=== PATIENT | male | born 2005 | race Two or more races ===

== ENCOUNTER 2024-07-09 02:23 | Emergency (ER) | payer MEDICAID, SELFPAY ==
[2024-07-09 02:24] VITALS: BMI 22.1
[2024-07-09 02:29] VITALS: BP 111/71; PULSE 64; RESP 19; TEMP 36.4; O2SAT 100
--- NOTE | 2024-07-09 03:15 | PD.EDABDPN ---
ED Abdominal Pain RME/HPI General Chief Complaint: Abdominal Pain Stated complaint: ABD PAIN Time seen by provider: 07/09/24 03:08 Arrival date/time: 07/09/24 02:23 19M with no significant PMH presents to ED with 1 hour of epigastric/LUQ pain. Patient denies N/V and URI symptoms. Limitations: no limitations Related Data Previous Rx's ?Medication ?Instructions ?Recorded ibuprofen 600 mg tablet 600 mg PO Q6H #30 tabs 03/26/23 Allergies Allergy/AdvReac Type Severity Reaction Status Date / Time No Known Drug Allergies Allergy Verified 03/26/23 15:51 Review of Systems Review of Systems Systems Reviewed: All systems reviewed, normal except as documented Constitutional Constitutional: Reports system reviewed and no additional complaints, except as documented, Denies fever(s) and Denies headache(s) ENT Ears, Nose, Mouth, and Throat: Denies disequilibrium and Denies headache(s) Cardiovascular Cardiovascular: Reports system reviewed and no additional complaints, except as documented, Denies chest pain and Denies dyspnea Respiratory Respiratory: Reports system reviewed and no additional complaints, except as documented, Denies cough and Denies dyspnea Gastrointestinal Gastrointestinal: Reports system reviewed and no additional complaints, except as documented, Reports as per HPI, Reports abdominal pain, Denies nausea and Denies vomiting Neurologic Neurologic: Reports system reviewed and no additional complaints, except as documented, Denies confusion, Denies disequilibrium and Denies headache(s) Psychiatric Psychiatric: Denies confusion Past Medical History Social History SMOKING STATUS: Never smoker ED Exam General Limitations: Present no limitations General appearance: Present alert and in no apparent distress Head Head exam: Present atraumatic Eye Eye exam: Present normal appearance, PERRL and EOMI ENT ENT exam: Present normal exam, normal oropharynx and mucous membranes moist Neck Neck exam: Present normal inspection, full ROM and trachea midline Chest Chest inspection: Present normal inspection and symmetric chest wall rise Respiratory Respiratory exam: Present normal lung sounds bilaterally Cardiovascular Cardiovascular exam: Present regular rate, normal rhythm and normal heart sounds Abdominal Exam Abdominal exam: Present soft and normal bowel sounds Abdominal tenderness: Present epigastrium and mild Extremities Exam Extremities exam: Present normal inspection and full ROM Back Exam Back exam: Present normal inspection and full ROM Neurological Exam Neurological exam: Present alert, oriented X3 and CN II-XII intact Psychiatric Psychiatric exam: Present normal affect and normal mood Skin Skin exam: Present warm, dry, intact and normal color Course Quality Measures none Orders Category Date Time Status Famotidine [Pepcid] Med 07/09/24 03:11 Discontinued 40 mg PO X1 ONE mg Hyd/Al Hyd/Jaqueline Susp [Maalox Susp] Med 07/09/24 03:11 Discontinued 30 ml PO X1 ONE Vital Signs Vital signs: Vital Signs Temperature 97.6 F 07/09/24 02:29 Pulse Rate 64 07/09/24 02:29 Respiratory Rate 19 07/09/24 02:29 Blood Pressure 111/71 07/09/24 02:29 Pulse Oximetry (%) 100 07/09/24 02:29 Oxygen Delivery Method Room Air 07/09/24 02:29 O2 at 100% on RA and WNLs Abdominal Pain MDM MDM Narrative MDM Narrative:: 19M with no significant PMH presents to ED with 1 hour of epigastric/LUQ pain. Patient denies N/V and URI symptoms. Physical exam reveals minimal epigastric tenderness. Patient is afebrile, calm, and alert. GI cocktail improved symptoms. Patient data External records reviewed:: [facility] previous records Clinical information provided by:: patient Social determinants that could affect healthcare access:: none Patient has the following chronic illnesses:: none How is presenting disease/condition affected by chronic disease/condition?: no chronic disease Evaluation data The following diagnostics were reviewed and interpreted by me:: other (specify) (none) Lab and/or radiology exams considered but not ordered:: not ordered Interpretation Summary: n/a Medications / Prescriptions Medications or Prescriptions considered but not ordered:: ordered Medication administrations:: Medication Administration History Discontinued Medications Al Hydrox/Mg Hydrox/Simethicone (Mg Hyd/Al Hyd/Jaqueline (Maalox Reg) Susp 30 Ml Udc) 30 ml PO X1 ONE Stop: 07/09/24 03:12 Last Admin: 07/09/24 03:22 Dose: 30 ml Documented By: MELY Famotidine (Famotidine 20 Mg Tablet) 40 mg PO X1 ONE Stop: 07/09/24 03:12 Last Admin: 07/09/24 03:22 Dose: 40 mg Documented By: MELY Comments: MEDICATION DOES NOT SCAN above Consultations Consultation(s) initiated? (list below): No Diagnosis Differential diagnosis abdominal pain: abdominal pain, acute appendicitis, calculus of kidney, constipation, diverticulitis, gastroenteritis, pancreatitis, small bowel obstruction and other (gastritis) Most likely diagnosis given after review of the tests above:: gastritis Admission Indicated Admission indicated?: not indicated Admission Request Was there a request for admission?: No Disposition Plan Disposition Plan: Discharge Discharge Attestation Discharge Attestation: The patient and all family members were given an opportunity to ask questions and understood the discharge instructions. Discharge instructions specifically effects, indications for sooner follow up or return to the emergency department, and the expected course of current diagnosis. Patient condition: Stable Discharge Plan Plan Patient Disposition: HOME (Self Care) Disposition Comment: Stable Prescriptions/Referrals Prescriptions/Med Rec: No Action ibuprofen 600 mg tablet 600 mg PO Q6H Qty: 30 0RF Problem List Clinical Impression: Gastritis Patient/Caregiver Discharge Instructions Education Materials: ED Gastritis (Adult) Additional Instructions: Please follow-up with PCP within 24-48 hours and return immediately if symptoms worsen. Can try OTC TUMs and/or Pepcid. Print Language: Scottish Stand Alone Forms: Patient Portal Info Letter GAYE/VIRIDIANA Supervising Physician TERRY Supervising Physician: Dr. Hoover
[2024-07-09] MEDS: FAMOTIDINE 20 MG TABLET 40 MG PO (03:22)
[2024-07-09] MEDS: MG HYD/AL HYD/SIME (Maalox Reg) SUSP 30 ML UDC PO (03:22)
== END 2024-07-09 03:47 | disposition home or self-care (01) ==
LOC: SERX 04:29
PROVIDERS: Emergency Provider Emergency Medicine
DX: K29.70 Gastritis, unspecified, without bleeding (principal)
CPT/HCPCS: 99282; A9270